=== PATIENT | female | born 2000 | race Caucasian/White ===

== ENCOUNTER 2020-08-27 07:45 | Emergency (ER) | payer OTHER ==
[2020-08-27 08:08] VITALS: BP 120/81; PULSE 109; TEMP 98.2; BMI 24.2
[2020-08-27] MEDS ORDERED: hydrOXYzine PAMOATE 50 MG CAPSULE (FP) PO ONE (08:18)
[2020-08-27] MEDS ORDERED: hydrOXYzine PAMOATE 50 MG CAPSULE (FP) ONE (08:25)
[2020-08-27 09:26] LABS: METHADONE, UR NEGATIVE ng/ml (CUTOFF=300); OPIATES, URI NEGATIVE ng/ml (CUTOFF=300); PHENCYCLIDINE,URINE NEGATIVE ng/ml (CUTOFF=25)
[2020-08-27 09:27] LABS: URINE BARBITURATES NEGATIVE ng/ml (CUTOFF=200); URINE BENZODIAZEPINES NEGATIVE ng/ml (CUTOFF=200)
[2020-08-27 09:29] LABS: COCAINE, UR NEGATIVE ng/ml (CUTOFF=300); URINE AMPHETAMINES NEGATIVE ng/ml (CUTOFF=500)
[2020-08-27 09:36] LABS: URINE COLOR YELLOW
[2020-08-27 09:37] LABS: URINE APPEARANCE CLEAR; URINE BILIRUBIN NEGATIVE (NEGATIVE); URINE GLUCOSE (UA) NEGATIVE (NEGATIVE); URINE KETONE NEGATIVE (NEGATIVE); URINE LEUK ESTERASE NEGATIVE (NEGATIVE); URINE NITRITE NEGATIVE (NEGATIVE); URINE PROTEIN NEGATIVE (NEGATIVE); URINE UROBILINOGEN 0.2 mg/dL (0.2-1.0)
[2020-09-02 22:07] LABS: HCG,QUALITATIVE URINE Negative
== END 2020-08-27 10:01 | disposition home or self-care (01) ==
LOC: JER 07:45
DX: F12.10 Cannabis abuse, uncomplicated (principal); F41.9 Anxiety disorder, unspecified
CPT/HCPCS: 80307; 81003; 84703; 99284-25

== ENCOUNTER 2024-06-23 22:06 | Emergency (ER) | payer OTHER ==
[2024-06-23 22:11] VITALS: RESP 16; BMI 27.8
[2024-06-24 00:31] LABS: BASO % 0.5 % (0-2.0); EOS % 4.9 % (0-4.5); HEMATOCRIT 37.5 % (32.4-45.2); HEMOGLOBIN 12.2 GM/dL (10.7-15.3); LYMPH % 17.4 % (8-40); MCH 27.5 pg (25.7-33.7); MCHC 32.5 g/dl (32.0-36.0); MEAN CELL VOLUME 84.5 fl (80-96); MEAN PLT VOLUME 9.5 fl (7.5-11.1); MONO % 5.2 % (3.8-10.2); PLATELET COUNT 393 10^3/uL (134-434); RBC 4.44 M/mm3 (3.60-5.2); RDW 14.9 % (11.6-15.6); WHITE BLOOD COUNT 11.3 K/mm3 (4.0-10.0)
[2024-06-24 00:41] LABS: EPI CELLS 8 /uL (0-25.1); HYALINE CASTS 0 /uL (0-3.1); PH,URINE 5.5 (5.0-8.0); URINE APPEARANCE CLEAR; URINE BACTERIA 24 /uL (0-1359); URINE BILIRUBIN NEGATIVE (NEGATIVE); URINE COLOR YELLOW; URINE GLUCOSE (UA) NEGATIVE (NEGATIVE); URINE KETONE NEGATIVE (NEGATIVE); URINE LEUK ESTERASE NEGATIVE (NEGATIVE); URINE NITRITE NEGATIVE (NEGATIVE); URINE PROTEIN 2+ (NEGATIVE); URINE RBC 32 /uL (0-23.9); URINE WBC 27 /uL (0-25.8)
[2024-06-24 00:52] LABS: POTASSIUM 4.1 mmol/L (3.5-5.1)
[2024-06-24 00:55] LABS: CALCIUM 9.4 mg/dL (8.5-10.1)
[2024-06-24 00:56] LABS: ALBUMIN 3.5 g/dl (3.4-5.0); BLOOD UREA NITROGEN 7.4 mg/dL (7-18)
[2024-06-24 00:58] LABS: CREATININE 0.5 mg/dL (0.55-1.3)
[2024-06-24 00:59] LABS: BILIRUBIN,TOTAL 0.4 mg/dL (0.2-1); TOT PROT 7.5 g/dl (6.4-8.2)
[2024-06-24 01:18] LABS: INR 0.96 (0.83-1.09); PROTHROMBIN TIME (PATIENT) 11.1 SEC (9.7-13.0)
[2024-06-24] MEDS: ACETAMINOPHEN 325 MG TABLET (FP) PO ONE (04:24)
[2024-06-24] MEDS ORDERED: ACETAMINOPHEN 325 MG TABLET (FP) ONE (04:30)
[2024-06-24] MEDS ORDERED: AMPICILLIN SODIUM 2 GM VIAL ONE (05:56)
[2024-06-24] MEDS ORDERED: GENTAMICIN SO4 80 MG/2 ML VIAL ONE (05:57)
[2024-06-24] MEDS: AMPICILLIN - 2 GM in SODIUM CHLORIDE 100 ML IVPB ONE (06:09)
[2024-06-24 06:54] VITALS: BP 110/70; PULSE 65; TEMP 98.7
[2024-06-24] MEDS: CLINDAMYCIN 900 MG PREMIX IVPB 900 MG/50 ML BAG IVPB ONE (07:54)
[2024-06-24] MEDS: DEXTROSE 5% IVPB ONE (08:47)
[2024-06-24] MEDS: GENTAMICIN IVPB ONE (08:47)
[2024-06-24] MEDS: WATER IVPB ONE (08:47)
== END 2024-06-24 10:15 | disposition short-term general hospital (02) ==
LOC: JER 22:06
DX: O90.0 Disruption of cesarean delivery wound (principal); Z20.822 Contact with and (suspected) exposure to COVID-19
CPT/HCPCS: 0241U-QW; 36415; 74177-TC; 80053; 81003; 83605; 85025; 85610; 85730; 86850; 86900; 86901; 87077; 87086; 99285-25; Q9967